=== PATIENT | female | born 1950 | race African-American/Black ===

== ENCOUNTER 2022-05-25 10:09 | Inpatient (IN) | payer OTHER ==
[2022-05-25] MEDS ORDERED: SODIUM CHLORIDE 0.9% 1000 ML INFUS.BAG IV ONE (10:52)
[2022-05-25] MEDS ORDERED: MECLIZINE HCL 25 MG TABLET (FP) PO ONE (10:52)
[2022-05-25] MEDS ORDERED: ACETAMINOPHEN 500 MG TABLET (FP) PO ONE (10:52)
[2022-05-25] MEDS ORDERED: ACETAMINOPHEN 325 MG TABLET (FP) ONE (11:03)
[2022-05-25] MEDS ORDERED: MECLIZINE HCL 25 MG TABLET (FP) ONE (11:03)
[2022-05-25 11:50] LABS: BASO % 1.1 % (0-2.0); EOS % 0.5 % (0-4.5); HEMOGLOBIN 10.9 GM/dL (10.7-15.3); MCH 25.5 pg (25.7-33.7); MCHC 32.2 g/dl (32.0-36.0); MEAN CELL VOLUME 79.3 fl (80-96); MEAN PLT VOLUME 10.6 fl (7.5-11.1); MONO % 7.5 % (3.8-10.2); NEUT % 64.9 % (42.8-82.8); PLATELET COUNT 199 10^3/uL (134-434); RBC 4.29 M/mm3 (3.60-5.2); RDW 14.3 % (11.6-15.6)
[2022-05-25 11:56] LABS: CALCIUM 7.3 mg/dL (8.5-10.1)
[2022-05-25 11:57] LABS: ALBUMIN 3.3 g/dl (3.4-5.0); BLOOD UREA NITROGEN 19.5 mg/dL (7-18)
[2022-05-25 12:00] LABS: CREATININE 1.2 mg/dL (0.55-1.3)
[2022-05-25 12:01] LABS: BILIRUBIN,TOTAL 0.3 mg/dL (0.2-1)
[2022-05-25 12:02] LABS: TOT PROT 6.9 g/dl (6.4-8.2)
[2022-05-25] MEDS ORDERED: MECLIZINE HCL 25 MG TABLET (FP) PO PRN (16:17)
[2022-05-25] MEDS ORDERED: HEPARIN NA (PORCINE) 5,000 UNITS/ML 1ML VIAL SQ SCH (22:00)
[2022-05-26] MEDS: ATORVASTATIN CA 40 MG TABLET (FP) PO SCH ×2 (00:40→21:32)
[2022-05-26] MEDS: CARVEDILOL 25 MG TABLET (FP) PO SCH ×3 (00:40→21:33)
[2022-05-26 04:18] VITALS: BMI 36.6
[2022-05-26] MEDS: LEVOTHYROXINE NA 125 MCG TABLET (FP) PO SCH (06:13)
[2022-05-26 07:31] LABS: BASO % 0.6 % (0-2.0); EOS % 0.8 % (0-4.5); HEMOGLOBIN 11.1 GM/dL (10.7-15.3); LYMPH % 31.8 % (8-40); MCH 25.4 pg (25.7-33.7); MCHC 31.8 g/dl (32.0-36.0); MEAN CELL VOLUME 79.7 fl (80-96); MEAN PLT VOLUME 10.5 fl (7.5-11.1); MONO % 7.5 % (3.8-10.2); NEUT % 59.3 % (42.8-82.8); PLATELET COUNT 214 10^3/uL (134-434); RBC 4.39 M/mm3 (3.60-5.2); RDW 14.4 % (11.6-15.6); WHITE BLOOD COUNT 8.3 K/mm3 (4.0-10.0)
[2022-05-26 07:56] LABS: CALCIUM 7.2 mg/dL (8.5-10.1)
[2022-05-26 07:57] LABS: BLOOD UREA NITROGEN 18.4 mg/dL (7-18)
[2022-05-26 08:00] LABS: CREATININE 1.1 mg/dL (0.55-1.3)
[2022-05-26] MEDS ORDERED: ASPIRIN 81 MG CHEWABLE TABLETS PO SCH (10:00)
[2022-05-26] MEDS: LISINOPRIL 20 MG TABLET PO SCH (10:08)
[2022-05-26] MEDS: EZETIMIBE 10 MG TABLET (FP) PO SCH (10:08)
[2022-05-26] MEDS ORDERED: LACTATED RINGERS SOLUTION 1,000 ML/1,000 ML INFUS.BAG IV SCH (10:30)
[2022-05-26] MEDS: LACTATED RINGERS SOLUTION 1,000 ML/1,000 ML INFUS.BAG IV SCH (10:58)
[2022-05-27] MEDS: LEVOTHYROXINE NA 125 MCG TABLET (FP) PO SCH (06:32)
[2022-05-27] MEDS: INSULIN SLIDING SCALE (NOVOLOG) 1 VIAL SQ SCH ×3 (06:32→16:28)
[2022-05-27] MEDS: LISINOPRIL 20 MG TABLET PO SCH (10:53)
[2022-05-27] MEDS: CARVEDILOL 25 MG TABLET (FP) PO SCH (10:53)
[2022-05-27] MEDS: ENOXAPARIN NA (PORCINE) 40 MG/0.4 ML DISP.SYRIN SQ SCH (10:54)
[2022-05-27] MEDS: EZETIMIBE 10 MG TABLET (FP) PO SCH (10:54)
[2022-05-27] MEDS: LACTATED RINGERS SOLUTION 1,000 ML/1,000 ML INFUS.BAG IV SCH (10:54)
[2022-05-27] MEDS ORDERED: ASPIRIN 325 MG ENTERIC COATED TABLET (FP) PO ONE (11:02)
[2022-05-27] MEDS ORDERED: CLOPIDOGREL BISULFATE 75 MG TABLET (FP) PO SCH (11:30)
[2022-05-27] MEDS: CLOPIDOGREL BISULFATE 75 MG TABLET (FP) PO SCH (16:26)
[2022-05-27] MEDS ORDERED: SODIUM CHLORIDE 1,000 ML IV SCH (19:15)
[2022-05-27] MEDS: ATORVASTATIN CA 40 MG TABLET (FP) PO SCH (21:08)
[2022-05-28] MEDS: LEVOTHYROXINE NA 125 MCG TABLET (FP) PO SCH (06:24)
[2022-05-28] MEDS: INSULIN SLIDING SCALE (NOVOLOG) 1 VIAL SQ SCH ×3 (06:24→17:02)
[2022-05-28 07:17] LABS: HEMOGLOBIN 10.5 GM/dL (10.7-15.3); MCH 25.6 pg (25.7-33.7); MCHC 31.9 g/dl (32.0-36.0); MEAN CELL VOLUME 80.2 fl (80-96); MEAN PLT VOLUME 10.8 fl (7.5-11.1); PLATELET COUNT 207 10^3/uL (134-434); RBC 4.12 M/mm3 (3.60-5.2); RDW 14.5 % (11.6-15.6); WHITE BLOOD COUNT 6.7 K/mm3 (4.0-10.0)
[2022-05-28 07:35] LABS: CHLORIDE 104 mmol/L (98-107); SODIUM 139 mmol/L (136-145)
[2022-05-28 07:39] LABS: CO2 35 mmol/L (21-32)
[2022-05-28 07:42] LABS: CALCIUM 7.3 mg/dL (8.5-10.1); MAGNESIUM 1.7 mg/dL (1.8-2.4)
[2022-05-28 07:43] LABS: CREATININE 1.2 mg/dL (0.55-1.3); SGOT/AST 69 U/L (15-37); SGPT/ALT 39 U/L (13-61)
[2022-05-28 07:44] LABS: TOT PROT 6.7 g/dl (6.4-8.2)
[2022-05-28 07:47] LABS: BLOOD UREA NITROGEN 16.8 mg/dL (7-18); GLUCOSE,RANDOM 183 mg/dL (74-106)
[2022-05-28 07:48] LABS: ALBUMIN 2.8 g/dl (3.4-5.0)
[2022-05-28 07:49] LABS: BILIRUBIN,TOTAL 0.5 mg/dL (0.2-1)
[2022-05-28 07:50] LABS: ALK PHOS 66 U/L (45-117); HDL CHOLESTEROL 47 mg/dL (40-60); PHOSPHOROUS 4.2 mg/dL (2.5-4.9)
[2022-05-28 07:51] LABS: CHOLESTEROL 118 mg/dL (50-200); LDL CHOLESTEROL (ONLY SJRH) 67 mg/dL (5-100)
[2022-05-28 08:16] LABS: ANION GAP 0 MMOL/L (8-16)
[2022-05-28] MEDS ORDERED: MAGNESIUM 2GM/50ML STERILE WATER IVPB IVPB ONE (08:26)
[2022-05-28] MEDS: ENOXAPARIN NA (PORCINE) 40 MG/0.4 ML DISP.SYRIN SQ SCH (09:19)
[2022-05-28] MEDS: LISINOPRIL 20 MG TABLET PO SCH (09:19)
[2022-05-28] MEDS: EZETIMIBE 10 MG TABLET (FP) PO SCH (09:19)
[2022-05-28] MEDS: CLOPIDOGREL BISULFATE 75 MG TABLET (FP) PO SCH (09:19)
[2022-05-28] MEDS ORDERED: ASPIRIN COATED 81 MG TABLET.EC PO SCH (10:00)
[2022-05-28] MEDS: LACTATED RINGERS SOLUTION 1,000 ML/1,000 ML INFUS.BAG IV SCH ×2 (11:00→12:51)
[2022-05-28 11:57] LABS: CALCIUM 7.8 mg/dL (8.5-10.1)
[2022-05-28 11:58] LABS: BLOOD UREA NITROGEN 16.8 mg/dL (7-18)
[2022-05-28 12:01] LABS: CREATININE 1.2 mg/dL (0.55-1.3)
[2022-05-28] MEDS: CARVEDILOL 25 MG TABLET (FP) PO SCH (22:00)
[2022-05-28] MEDS: ATORVASTATIN CA 40 MG TABLET (FP) PO SCH (22:00)
[2022-05-29] MEDS: INSULIN SLIDING SCALE (NOVOLOG) 1 VIAL SQ SCH ×3 (06:07→16:12)
[2022-05-29] MEDS: LEVOTHYROXINE NA 125 MCG TABLET (FP) PO SCH (06:08)
[2022-05-29] MEDS: LACTATED RINGERS SOLUTION 1,000 ML/1,000 ML INFUS.BAG IV SCH (06:10)
[2022-05-29 08:10] LABS: CALCIUM 7.3 mg/dL (8.5-10.1)
[2022-05-29 08:11] LABS: ALBUMIN 2.8 g/dl (3.4-5.0); BLOOD UREA NITROGEN 17.5 mg/dL (7-18); MAGNESIUM 1.9 mg/dL (1.8-2.4)
[2022-05-29 08:14] LABS: CREATININE 1.1 mg/dL (0.55-1.3); PHOSPHOROUS 3.1 mg/dL (2.5-4.9)
[2022-05-29 08:16] LABS: BILIRUBIN,TOTAL 0.4 mg/dL (0.2-1)
[2022-05-29 08:29] LABS: HEMATOCRIT 29.2 % (32.4-45.2); HEMOGLOBIN 9.3 GM/dL (10.7-15.3); MCH 25.6 pg (25.7-33.7); MCHC 31.9 g/dl (32.0-36.0); MEAN CELL VOLUME 80.3 fl (80-96); MEAN PLT VOLUME 10.4 fl (7.5-11.1); PLATELET COUNT 159 10^3/uL (134-434); RBC 3.63 M/mm3 (3.60-5.2); RDW 14.6 % (11.6-15.6); WHITE BLOOD COUNT 6.2 K/mm3 (4.0-10.0)
[2022-05-29] MEDS: ENOXAPARIN NA (PORCINE) 40 MG/0.4 ML DISP.SYRIN SQ SCH (09:22)
[2022-05-29] MEDS: EZETIMIBE 10 MG TABLET (FP) PO SCH (09:23)
[2022-05-29] MEDS: CLOPIDOGREL BISULFATE 75 MG TABLET (FP) PO SCH (09:23)
[2022-05-29] MEDS: LISINOPRIL 20 MG TABLET PO SCH (09:23)
[2022-05-29] MEDS: CARVEDILOL 25 MG TABLET (FP) PO SCH ×2 (09:23→21:26)
[2022-05-29] MEDS ORDERED: FUROSEMIDE 40 MG/4 ML INJECTABLE VIAL IVPUSH ONE (11:54)
[2022-05-29] MEDS: ATORVASTATIN CA 40 MG TABLET (FP) PO SCH (21:25)
[2022-05-30] MEDS: INSULIN SLIDING SCALE (NOVOLOG) 1 VIAL SQ SCH ×3 (06:03→17:31)
[2022-05-30] MEDS: LEVOTHYROXINE NA 125 MCG TABLET (FP) PO SCH (06:03)
[2022-05-30 06:42] LABS: HEMATOCRIT 29.7 % (32.4-45.2); HEMOGLOBIN 9.5 GM/dL (10.7-15.3); MCH 25.6 pg (25.7-33.7); MEAN CELL VOLUME 79.9 fl (80-96); MEAN PLT VOLUME 10.8 fl (7.5-11.1); PLATELET COUNT 167 10^3/uL (134-434); RBC 3.71 M/mm3 (3.60-5.2); RDW 14.1 % (11.6-15.6); WHITE BLOOD COUNT 6.1 K/mm3 (4.0-10.0)
[2022-05-30 07:10] LABS: CALCIUM 7.6 mg/dL (8.5-10.1)
[2022-05-30 07:11] LABS: ALBUMIN 2.9 g/dl (3.4-5.0); BLOOD UREA NITROGEN 23.4 mg/dL (7-18); MAGNESIUM 1.9 mg/dL (1.8-2.4)
[2022-05-30 07:14] LABS: CREATININE 1.1 mg/dL (0.55-1.3); PHOSPHOROUS 4.2 mg/dL (2.5-4.9)
[2022-05-30 07:15] LABS: BILIRUBIN,TOTAL 0.4 mg/dL (0.2-1); TOT PROT 6.2 g/dl (6.4-8.2)
[2022-05-30] MEDS: CLOPIDOGREL BISULFATE 75 MG TABLET (FP) PO SCH (09:34)
[2022-05-30] MEDS: EZETIMIBE 10 MG TABLET (FP) PO SCH (09:34)
[2022-05-30] MEDS: LISINOPRIL 20 MG TABLET PO SCH (09:34)
[2022-05-30] MEDS: CARVEDILOL 25 MG TABLET (FP) PO SCH ×2 (09:35→22:13)
[2022-05-30] MEDS: ENOXAPARIN NA (PORCINE) 40 MG/0.4 ML DISP.SYRIN SQ SCH (09:35)
[2022-05-30] MEDS: APIXABAN 5 MG TABLET PO SCH ×2 (12:39→22:13)
[2022-05-30] MEDS: ATORVASTATIN CA 40 MG TABLET (FP) PO SCH (22:13)
[2022-05-31] MEDS: LEVOTHYROXINE NA 125 MCG TABLET (FP) PO SCH (06:42)
[2022-05-31] MEDS: INSULIN SLIDING SCALE (NOVOLOG) 1 VIAL SQ SCH ×3 (06:42→17:55)
[2022-05-31 07:36] LABS: HEMATOCRIT 29.6 % (32.4-45.2); HEMOGLOBIN 9.4 GM/dL (10.7-15.3); MCH 25.7 pg (25.7-33.7); MCHC 31.9 g/dl (32.0-36.0); MEAN CELL VOLUME 80.5 fl (80-96); PLATELET COUNT 162 10^3/uL (134-434); RBC 3.68 M/mm3 (3.60-5.2); WHITE BLOOD COUNT 5.4 K/mm3 (4.0-10.0)
[2022-05-31 08:07] LABS: CALCIUM 7.3 mg/dL (8.5-10.1)
[2022-05-31 08:08] LABS: BLOOD UREA NITROGEN 22.9 mg/dL (7-18); MAGNESIUM 1.8 mg/dL (1.8-2.4)
[2022-05-31] MEDS: APIXABAN 5 MG TABLET PO SCH ×2 (10:24→21:33)
[2022-05-31] MEDS: LISINOPRIL 20 MG TABLET PO SCH (10:24)
[2022-05-31] MEDS: CARVEDILOL 25 MG TABLET (FP) PO SCH ×2 (10:24→21:33)
[2022-05-31] MEDS: CLOPIDOGREL BISULFATE 75 MG TABLET (FP) PO SCH (10:24)
[2022-05-31] MEDS: EZETIMIBE 10 MG TABLET (FP) PO SCH (10:24)
[2022-05-31] MEDS: ATORVASTATIN CA 40 MG TABLET (FP) PO SCH (21:33)
[2022-06-01] MEDS: INSULIN SLIDING SCALE (NOVOLOG) 1 VIAL SQ SCH ×3 (06:40→17:44)
[2022-06-01] MEDS: LEVOTHYROXINE NA 125 MCG TABLET (FP) PO SCH (06:40)
[2022-06-01 08:11] LABS: HEMATOCRIT 27.7 % (32.4-45.2); HEMOGLOBIN 8.9 GM/dL (10.7-15.3); MCH 25.7 pg (25.7-33.7); MEAN CELL VOLUME 80.5 fl (80-96); MEAN PLT VOLUME 10.1 fl (7.5-11.1); PLATELET COUNT 148 10^3/uL (134-434); RBC 3.44 M/mm3 (3.60-5.2); RDW 14.1 % (11.6-15.6); WHITE BLOOD COUNT 5.4 K/mm3 (4.0-10.0)
[2022-06-01 09:01] LABS: BLOOD UREA NITROGEN 21.3 mg/dL (7-18); CALCIUM 7.8 mg/dL (8.5-10.1)
[2022-06-01 09:02] LABS: ALBUMIN 2.7 g/dl (3.4-5.0); MAGNESIUM 1.9 mg/dL (1.8-2.4)
[2022-06-01 09:04] LABS: PHOSPHOROUS 3.6 mg/dL (2.5-4.9)
[2022-06-01 09:05] LABS: CREATININE 1.1 mg/dL (0.55-1.3)
[2022-06-01 09:06] LABS: BILIRUBIN,TOTAL 0.4 mg/dL (0.2-1); TOT PROT 5.8 g/dl (6.4-8.2)
[2022-06-01] MEDS: CLOPIDOGREL BISULFATE 75 MG TABLET (FP) PO SCH (09:59)
[2022-06-01] MEDS: CARVEDILOL 25 MG TABLET (FP) PO SCH ×2 (09:59→21:01)
[2022-06-01] MEDS: APIXABAN 5 MG TABLET PO SCH (09:59)
[2022-06-01] MEDS: LISINOPRIL 20 MG TABLET PO SCH (09:59)
[2022-06-01] MEDS: EZETIMIBE 10 MG TABLET (FP) PO SCH (09:59)
[2022-06-01] MEDS ORDERED: INSULIN (NOVOLOG) ASPART 100 UNITS/ML 10ML VIAL ONE ×2 (12:28→17:41)
[2022-06-01] MEDS: ATORVASTATIN CA 40 MG TABLET (FP) PO SCH (21:01)
[2022-06-02] MEDS ORDERED: INSULIN (NOVOLOG) ASPART 100 UNITS/ML 10ML VIAL ONE ×3 (06:13→17:33)
[2022-06-02] MEDS: INSULIN SLIDING SCALE (NOVOLOG) 1 VIAL SQ SCH ×3 (06:13→17:35)
[2022-06-02] MEDS: LEVOTHYROXINE NA 125 MCG TABLET (FP) PO SCH (06:23)
[2022-06-02 08:00] LABS: HEMATOCRIT 29.8 % (32.4-45.2); HEMOGLOBIN 9.5 GM/dL (10.7-15.3); MCH 25.9 pg (25.7-33.7); MCHC 31.7 g/dl (32.0-36.0); MEAN CELL VOLUME 81.6 fl (80-96); MEAN PLT VOLUME 10.9 fl (7.5-11.1); PLATELET COUNT 170 10^3/uL (134-434); RBC 3.65 M/mm3 (3.60-5.2); RDW 14.1 % (11.6-15.6); WHITE BLOOD COUNT 6.1 K/mm3 (4.0-10.0)
[2022-06-02 08:48] LABS: ALBUMIN 2.9 g/dl (3.4-5.0); BLOOD UREA NITROGEN 23.2 mg/dL (7-18); CALCIUM 8.2 mg/dL (8.5-10.1)
[2022-06-02 08:51] LABS: PHOSPHOROUS 3.7 mg/dL (2.5-4.9)
[2022-06-02 09:00] LABS: BILIRUBIN,TOTAL 0.4 mg/dL (0.2-1)
[2022-06-02] MEDS: LISINOPRIL 20 MG TABLET PO SCH (10:27)
[2022-06-02] MEDS: CARVEDILOL 25 MG TABLET (FP) PO SCH ×2 (10:27→22:03)
[2022-06-02] MEDS: CLOPIDOGREL BISULFATE 75 MG TABLET (FP) PO SCH (10:28)
[2022-06-02] MEDS: EZETIMIBE 10 MG TABLET (FP) PO SCH (10:28)
[2022-06-02] MEDS ORDERED: FUROSEMIDE 40 MG/4 ML INJECTABLE VIAL IVPUSH ONE (10:57)
[2022-06-02] MEDS: ATORVASTATIN CA 40 MG TABLET (FP) PO SCH (22:03)
[2022-06-03] MEDS ORDERED: INSULIN (NOVOLOG) ASPART 100 UNITS/ML 10ML VIAL ONE (06:54)
[2022-06-03] MEDS: INSULIN SLIDING SCALE (NOVOLOG) 1 VIAL SQ SCH ×3 (06:58→17:25)
[2022-06-03] MEDS: LEVOTHYROXINE NA 125 MCG TABLET (FP) PO SCH (07:01)
[2022-06-03 07:51] LABS: HEMATOCRIT 27.6 % (32.4-45.2); HEMOGLOBIN 8.9 GM/dL (10.7-15.3); MCH 25.7 pg (25.7-33.7); MCHC 32.2 g/dl (32.0-36.0); MEAN CELL VOLUME 79.9 fl (80-96); MEAN PLT VOLUME 10.8 fl (7.5-11.1); PLATELET COUNT 172 10^3/uL (134-434); RBC 3.46 M/mm3 (3.60-5.2); WHITE BLOOD COUNT 6.6 K/mm3 (4.0-10.0)
[2022-06-03 08:13] LABS: CALCIUM 8.1 mg/dL (8.5-10.1)
[2022-06-03 08:14] LABS: ALBUMIN 2.9 g/dl (3.4-5.0)
[2022-06-03 08:19] LABS: BILIRUBIN,TOTAL 0.5 mg/dL (0.2-1)
[2022-06-03] MEDS ORDERED: PIPERACILLIN/TAZOB 3.375 GM 3.375 GM in DEXTROSE 5%-WATER - 50 ML IVPB SCH ×2 (09:15→09:45)
[2022-06-03] MEDS: ENOXAPARIN NA (PORCINE) 40 MG/0.4 ML DISP.SYRIN SQ SCH (10:35)
[2022-06-03] MEDS: LISINOPRIL 20 MG TABLET PO SCH (10:36)
[2022-06-03] MEDS: CARVEDILOL 25 MG TABLET (FP) PO SCH ×2 (10:36→21:23)
[2022-06-03] MEDS: EZETIMIBE 10 MG TABLET (FP) PO SCH (10:36)
[2022-06-03] MEDS: CLOPIDOGREL BISULFATE 75 MG TABLET (FP) PO SCH (10:36)
[2022-06-03 11:01] LABS: ARTERIAL BLD GAS O2 SATURATION 96.4 % (95-98); ARTERIAL BLOOD GAS BASE EXCESS 12.9 mmol/L (-2-2); ARTERIAL BLOOD GAS PO2 93.7 mmHg (80-100); ARTERIAL BLOOD GAS pH 7.345 (7.350-7.450)
[2022-06-03 11:15] LABS: ALLENS TEST POSITIVE
[2022-06-03] MEDS: ATORVASTATIN CA 40 MG TABLET (FP) PO SCH (21:23)
[2022-06-04] MEDS: INSULIN SLIDING SCALE (NOVOLOG) 1 VIAL SQ SCH ×3 (06:21→17:16)
[2022-06-04] MEDS ORDERED: INSULIN (NOVOLOG) ASPART 100 UNITS/ML 10ML VIAL ONE ×2 (06:21→11:27)
[2022-06-04] MEDS: LEVOTHYROXINE NA 125 MCG TABLET (FP) PO SCH (06:23)
[2022-06-04 07:42] LABS: HEMATOCRIT 27.7 % (32.4-45.2); HEMOGLOBIN 8.9 GM/dL (10.7-15.3); MCH 25.9 pg (25.7-33.7); MCHC 32.2 g/dl (32.0-36.0); MEAN CELL VOLUME 80.4 fl (80-96); MEAN PLT VOLUME 10.8 fl (7.5-11.1); PLATELET COUNT 169 10^3/uL (134-434); RBC 3.45 M/mm3 (3.60-5.2); RDW 13.6 % (11.6-15.6); WHITE BLOOD COUNT 6.9 K/mm3 (4.0-10.0)
[2022-06-04 08:03] LABS: CALCIUM 8.1 mg/dL (8.5-10.1)
[2022-06-04 08:04] LABS: ALBUMIN 2.8 g/dl (3.4-5.0); BLOOD UREA NITROGEN 20.8 mg/dL (7-18)
[2022-06-04 08:07] LABS: CREATININE 0.9 mg/dL (0.55-1.3); PHOSPHOROUS 3.9 mg/dL (2.5-4.9)
[2022-06-04 08:08] LABS: BILIRUBIN,TOTAL 0.4 mg/dL (0.2-1); TOT PROT 5.9 g/dl (6.4-8.2)
[2022-06-04] MEDS: CARVEDILOL 25 MG TABLET (FP) PO SCH ×3 (09:13→21:03)
[2022-06-04] MEDS: CLOPIDOGREL BISULFATE 75 MG TABLET (FP) PO SCH (09:14)
[2022-06-04] MEDS: LISINOPRIL 20 MG TABLET PO SCH (09:14)
[2022-06-04] MEDS: ENOXAPARIN NA (PORCINE) 40 MG/0.4 ML DISP.SYRIN SQ SCH (09:14)
[2022-06-04] MEDS: EZETIMIBE 10 MG TABLET (FP) PO SCH (09:15)
[2022-06-04] MEDS: ATORVASTATIN CA 40 MG TABLET (FP) PO SCH (21:03)
[2022-06-05] MEDS: INSULIN SLIDING SCALE (NOVOLOG) 1 VIAL SQ SCH ×3 (06:26→16:53)
[2022-06-05] MEDS: LEVOTHYROXINE NA 125 MCG TABLET (FP) PO SCH (06:27)
[2022-06-05 08:21] LABS: HEMATOCRIT 28.3 % (32.4-45.2); HEMOGLOBIN 9.2 GM/dL (10.7-15.3); MCHC 32.4 g/dl (32.0-36.0); MEAN CELL VOLUME 80.2 fl (80-96); MEAN PLT VOLUME 10.8 fl (7.5-11.1); PLATELET COUNT 180 10^3/uL (134-434); RBC 3.53 M/mm3 (3.60-5.2); WHITE BLOOD COUNT 6.3 K/mm3 (4.0-10.0)
[2022-06-05 08:37] LABS: ALBUMIN 2.9 g/dl (3.4-5.0); BLOOD UREA NITROGEN 18.8 mg/dL (7-18); CALCIUM 8.1 mg/dL (8.5-10.1)
[2022-06-05 08:40] LABS: PHOSPHOROUS 3.5 mg/dL (2.5-4.9)
[2022-06-05 08:41] LABS: CREATININE 0.9 mg/dL (0.55-1.3)
[2022-06-05 08:42] LABS: BILIRUBIN,TOTAL 0.4 mg/dL (0.2-1); TOT PROT 6.1 g/dl (6.4-8.2)
[2022-06-05] MEDS: ENOXAPARIN NA (PORCINE) 40 MG/0.4 ML DISP.SYRIN SQ SCH (10:33)
[2022-06-05] MEDS: CLOPIDOGREL BISULFATE 75 MG TABLET (FP) PO SCH (10:34)
[2022-06-05] MEDS: EZETIMIBE 10 MG TABLET (FP) PO SCH (10:34)
[2022-06-05] MEDS: LISINOPRIL 20 MG TABLET PO SCH (10:34)
[2022-06-05] MEDS: CARVEDILOL 25 MG TABLET (FP) PO SCH ×2 (10:35→21:02)
[2022-06-05] MEDS ORDERED: INSULIN (NOVOLOG) ASPART 100 UNITS/ML 10ML VIAL ONE ×2 (12:03→12:34)
[2022-06-05 15:57] LABS: ARTERIAL BLD GAS O2 SATURATION 79.7 % (95-98); ARTERIAL BLOOD GAS BASE EXCESS 16.4 mmol/L (-2-2); ARTERIAL BLOOD GAS PO2 48.1 mmHg (80-100); ARTERIAL BLOOD GAS pH 7.359 (7.350-7.450)
[2022-06-05 16:01] LABS: ALLENS TEST POSITIVE
[2022-06-05] MEDS: ATORVASTATIN CA 40 MG TABLET (FP) PO SCH (21:03)
[2022-06-06] MEDS: LEVOTHYROXINE NA 125 MCG TABLET (FP) PO SCH (06:02)
[2022-06-06] MEDS: INSULIN SLIDING SCALE (NOVOLOG) 1 VIAL SQ SCH ×3 (06:16→17:28)
[2022-06-06 07:16] LABS: HEMOGLOBIN 8.9 GM/dL (10.7-15.3); MCH 25.7 pg (25.7-33.7); MCHC 31.7 g/dl (32.0-36.0); MEAN CELL VOLUME 80.9 fl (80-96); MEAN PLT VOLUME 10.2 fl (7.5-11.1); PLATELET COUNT 177 10^3/uL (134-434); RBC 3.46 M/mm3 (3.60-5.2); RDW 14.1 % (11.6-15.6)
[2022-06-06 08:00] LABS: BLOOD UREA NITROGEN 20.9 mg/dL (7-18)
[2022-06-06 08:01] LABS: ALBUMIN 2.8 g/dl (3.4-5.0); CALCIUM 7.8 mg/dL (8.5-10.1); MAGNESIUM 1.9 mg/dL (1.8-2.4)
[2022-06-06 08:04] LABS: PHOSPHOROUS 4.2 mg/dL (2.5-4.9)
[2022-06-06 08:06] LABS: BILIRUBIN,TOTAL 0.3 mg/dL (0.2-1); TOT PROT 5.9 g/dl (6.4-8.2)
[2022-06-06] MEDS: LISINOPRIL 20 MG TABLET PO SCH (10:54)
[2022-06-06] MEDS: EZETIMIBE 10 MG TABLET (FP) PO SCH (10:54)
[2022-06-06] MEDS: CLOPIDOGREL BISULFATE 75 MG TABLET (FP) PO SCH (10:54)
[2022-06-06] MEDS: ENOXAPARIN NA (PORCINE) 40 MG/0.4 ML DISP.SYRIN SQ SCH (10:54)
[2022-06-06] MEDS: CARVEDILOL 25 MG TABLET (FP) PO SCH (10:54)
[2022-06-06] MEDS ORDERED: INSULIN (NOVOLOG) ASPART 100 UNITS/ML 10ML VIAL ONE ×2 (11:57→20:30)
[2022-06-06] MEDS: ATORVASTATIN CA 40 MG TABLET (FP) PO SCH (21:47)
[2022-06-06] MEDS: CARVEDILOL 12.5 MG TABLET (FP) PO SCH (21:47)
[2022-06-07] MEDS: INSULIN SLIDING SCALE (NOVOLOG) 1 VIAL SQ SCH ×3 (06:46→17:18)
[2022-06-07] MEDS: LEVOTHYROXINE NA 125 MCG TABLET (FP) PO SCH (06:46)
[2022-06-07 08:29] LABS: BLOOD UREA NITROGEN 23.8 mg/dL (7-18)
[2022-06-07 08:30] LABS: ALBUMIN 2.7 g/dl (3.4-5.0)
[2022-06-07 08:31] LABS: BILIRUBIN,TOTAL 0.4 mg/dL (0.2-1); CALCIUM 7.6 mg/dL (8.5-10.1); MAGNESIUM 1.9 mg/dL (1.8-2.4)
[2022-06-07 08:32] LABS: PHOSPHOROUS 4.4 mg/dL (2.5-4.9)
[2022-06-07 08:59] LABS: HEMATOCRIT 27.2 % (32.4-45.2); HEMOGLOBIN 8.6 GM/dL (10.7-15.3); MCH 25.8 pg (25.7-33.7); MCHC 31.8 g/dl (32.0-36.0); MEAN CELL VOLUME 81.1 fl (80-96); MEAN PLT VOLUME 10.2 fl (7.5-11.1); PLATELET COUNT 172 10^3/uL (134-434); RBC 3.35 M/mm3 (3.60-5.2); RDW 14.3 % (11.6-15.6); WHITE BLOOD COUNT 6.9 K/mm3 (4.0-10.0)
[2022-06-07] MEDS: LISINOPRIL 20 MG TABLET PO SCH (10:06)
[2022-06-07] MEDS: CARVEDILOL 12.5 MG TABLET (FP) PO SCH ×2 (10:06→21:37)
[2022-06-07] MEDS: EZETIMIBE 10 MG TABLET (FP) PO SCH (10:06)
[2022-06-07] MEDS: ENOXAPARIN NA (PORCINE) 40 MG/0.4 ML DISP.SYRIN SQ SCH (10:06)
[2022-06-07] MEDS: CLOPIDOGREL BISULFATE 75 MG TABLET (FP) PO SCH (10:06)
[2022-06-07] MEDS: ATORVASTATIN CA 40 MG TABLET (FP) PO SCH (21:36)
[2022-06-07] MEDS ORDERED: MECLIZINE HCL 25 MG TABLET (FP) PO PRN (22:40)
[2022-06-07 22:49] VITALS: RESP 18
[2022-06-08] MEDS: INSULIN SLIDING SCALE (NOVOLOG) 1 VIAL SQ SCH ×3 (06:24→17:20)
[2022-06-08] MEDS ORDERED: LEVOTHYROXINE NA 125 MCG TABLET (FP) PO SCH (07:00)
[2022-06-08 09:12] LABS: HEMATOCRIT 27.2 % (32.4-45.2); HEMOGLOBIN 8.6 GM/dL (10.7-15.3); MCH 25.6 pg (25.7-33.7); MCHC 31.7 g/dl (32.0-36.0); MEAN CELL VOLUME 80.7 fl (80-96); MEAN PLT VOLUME 9.9 fl (7.5-11.1); PLATELET COUNT 183 10^3/uL (134-434); RBC 3.37 M/mm3 (3.60-5.2); RDW 14.3 % (11.6-15.6); WHITE BLOOD COUNT 6.2 K/mm3 (4.0-10.0)
[2022-06-08 09:53] LABS: BLOOD UREA NITROGEN 19.6 mg/dL (7-18); CALCIUM 7.5 mg/dL (8.5-10.1); MAGNESIUM 1.9 mg/dL (1.8-2.4)
[2022-06-08 09:55] LABS: ALBUMIN 2.7 g/dl (3.4-5.0)
[2022-06-08 09:57] LABS: BILIRUBIN,TOTAL 0.4 mg/dL (0.2-1)
[2022-06-08 09:58] LABS: TOT PROT 5.9 g/dl (6.4-8.2)
[2022-06-08 09:59] LABS: CREATININE 0.9 mg/dL (0.55-1.3); PHOSPHOROUS 4.1 mg/dL (2.5-4.9)
[2022-06-08] MEDS ORDERED: LISINOPRIL 20 MG TABLET PO SCH (10:00)
[2022-06-08] MEDS ORDERED: EZETIMIBE 10 MG TABLET (FP) PO SCH (10:00)
[2022-06-08] MEDS ORDERED: ENOXAPARIN NA (PORCINE) 40 MG/0.4 ML DISP.SYRIN SQ SCH (10:00)
[2022-06-08] MEDS ORDERED: CARVEDILOL 12.5 MG TABLET (FP) PO SCH (10:00)
[2022-06-08] MEDS ORDERED: CLOPIDOGREL BISULFATE 75 MG TABLET (FP) PO SCH (10:00)
[2022-06-08] MEDS ORDERED: INSULIN (NOVOLOG) ASPART 100 UNITS/ML 10ML VIAL ONE (11:51)
[2022-06-08 17:52] VITALS: BP 133/58; PULSE 66; TEMP 98.4
[2022-06-08] MEDS ORDERED: ATORVASTATIN CA 40 MG TABLET (FP) PO SCH (22:00)
== END 2022-06-08 18:32 | disposition home or self-care (01) | DRG 64 ==
LOC: JER 10:09 → INTOOBSV 15:21 → JERBED 15:21 → UNDOADMOB 15:21 → JERBED 16:01 → J4W 05-26 02:43 → OBSVTOIN 05-27 13:43 → J6S 06-07 21:56
PROVIDERS: ADMIT Internal Medicine; ATTEND Internal Medicine
DX: I61.9 Nontraumatic intracerebral hemorrhage, unspecified (principal); I63.89 Other cerebral infarction; J96.22 Acute and chronic respiratory failure with hypercapnia; J96.21 Acute and chronic respiratory failure with hypoxia; J98.11 Atelectasis; I25.10 Atherosclerotic heart disease of native coronary artery without angina pectoris; I10 Essential (primary) hypertension; E78.5 Hyperlipidemia, unspecified; E11.9 Type 2 diabetes mellitus without complications; E03.9 Hypothyroidism, unspecified; R51.9 Headache, unspecified; R93.0 Abnormal findings on diagnostic imaging of skull and head, not elsewhere classified; R29.700 NIHSS score 0; I95.1 Orthostatic hypotension; E86.0 Dehydration; G47.33 Obstructive sleep apnea (adult) (pediatric); I48.91 Unspecified atrial fibrillation; D64.9 Anemia, unspecified; J44.9 Chronic obstructive pulmonary disease, unspecified
CPT/HCPCS: 0241U-QW; 36415; 36600; 70450-TC; 70551-TC; 71045-TC-FY; 71046-TC-FY; 71250-TC; 74230-TC-FY; 80048; 80053; 80061; 82308; 82803; 82962; 83036; 83735; 84100; 84484; 85025; 85027; 85730; 87040; 92611-GN; 93005; 93010; 93306-TC; 93880-TC; 93970-TC; 94660; 94761; 97116-GP; 97162-GP; 99285-25; C9803-CS; G0378; U0003; U0005

== ENCOUNTER 2023-01-08 11:00 | Inpatient (IN) | payer OTHER ==
[2023-01-08 12:52] LABS: BASO % 0.8 % (0-2.0); EOS % 0.9 % (0-4.5); HEMATOCRIT 37.3 % (32.4-45.2); HEMOGLOBIN 11.7 GM/dL (10.7-15.3); LYMPH % 30.3 % (8-40); MCHC 31.5 g/dl (32.0-36.0); MEAN CELL VOLUME 76.1 fl (80-96); MEAN PLT VOLUME 10.2 fl (7.5-11.1); MONO % 7.5 % (3.8-10.2); NEUT % 60.5 % (42.8-82.8); PLATELET COUNT 264 10^3/uL (134-434); RDW 16.2 % (11.6-15.6)
[2023-01-08 13:06] LABS: CHLORIDE 100 mmol/L (98-107); SODIUM 138 mmol/L (136-145)
[2023-01-08 13:09] LABS: CALCIUM 8.7 mg/dL (8.5-10.1)
[2023-01-08 13:10] LABS: ALBUMIN 3.6 g/dl (3.4-5.0); BLOOD UREA NITROGEN 25.7 mg/dL (7-18); CO2 32 mmol/L (21-32); GLUCOSE,RANDOM 156 mg/dL (74-106)
[2023-01-08 13:13] LABS: CREATININE 1.2 mg/dL (0.55-1.3); SGOT/AST 19 U/L (15-37); SGPT/ALT 19 U/L (13-61)
[2023-01-08 13:14] LABS: BILIRUBIN,TOTAL 0.5 mg/dL (0.2-1); TOT PROT 7.2 g/dl (6.4-8.2)
[2023-01-08 13:16] LABS: ALK PHOS 59 U/L (45-117)
[2023-01-08 13:18] LABS: ANION GAP 6 mmol/L (4-13); N-TERMINAL BNP 665.6 pg/ml (5-125); POTASSIUM 6.1 mmol/L (3.5-5.1)
[2023-01-08 13:23] LABS: PH,URINE 7.5 (5.0-8.0); URINE APPEARANCE CLEAR; URINE BILIRUBIN NEGATIVE (NEGATIVE); URINE COLOR YELLOW; URINE GLUCOSE (UA) 3+ (NEGATIVE); URINE KETONE NEGATIVE (NEGATIVE); URINE LEUK ESTERASE NEGATIVE (NEGATIVE); URINE NITRITE NEGATIVE (NEGATIVE); URINE PROTEIN NEGATIVE (NEGATIVE)
[2023-01-08] MEDS ORDERED: INSULIN REGULAR HUMAN 100 UNITS/ML *VIAL IVPUSH ONE (13:36)
[2023-01-08] MEDS ORDERED: DEXTROSE 50%-WATER - 25 GM/50 ML VIAL IVPUSH ONE (13:37)
[2023-01-08] MEDS ORDERED: SODIUM CHLORIDE 0.9% 500 ML INFUS.BAG IV ONE (13:37)
[2023-01-08] MEDS ORDERED: SODIUM ZIRCONIUM CYCLOSILICATE (LOKELMA) 10 GM PACKET ONE (13:45)
[2023-01-08] MEDS ORDERED: DEXTROSE 50%-WATER 25 GM/50 ML DISP.SYRIN ONE (13:45)
[2023-01-08] MEDS ORDERED: SODIUM ZIRCONIUM CYCLOSILICATE (LOKELMA) 5 GM PACKET PO ONE (14:13)
[2023-01-08 16:57] LABS: BLOOD UREA NITROGEN 22.4 mg/dL (7-18); CALCIUM 8.8 mg/dL (8.5-10.1)
[2023-01-08 17:01] LABS: CREATININE 1.3 mg/dL (0.55-1.3)
[2023-01-08] MEDS ORDERED: ASPIRIN COATED 81 MG TABLET.EC ONE (17:33)
[2023-01-08] MEDS ORDERED: CLOPIDOGREL BISULFATE 75 MG TABLET (FP) ONE (17:33)
[2023-01-08] MEDS: ASPIRIN COATED 81 MG TABLET.EC PO SCH (17:35)
[2023-01-08] MEDS: CLOPIDOGREL BISULFATE 75 MG TABLET (FP) PO SCH (17:35)
[2023-01-08] MEDS: ATORVASTATIN CA 40 MG TABLET (FP) PO SCH (21:36)
[2023-01-08] MEDS ORDERED: CARVEDILOL 25 MG TABLET (FP) PO SCH (22:00)
[2023-01-08 23:18] VITALS: BMI 31.4
[2023-01-09] MEDS: LEVOTHYROXINE NA 125 MCG TABLET (FP) PO SCH (06:48)
[2023-01-09] MEDS: metFORMIN HCL 500 MG TABLET (FP) PO SCH (06:48)
[2023-01-09 07:37] LABS: HEMATOCRIT 35.6 % (32.4-45.2); HEMOGLOBIN 10.9 GM/dL (10.7-15.3); MCH 23.5 pg (25.7-33.7); MCHC 30.5 g/dl (32.0-36.0); MEAN CELL VOLUME 77.3 fl (80-96); MEAN PLT VOLUME 9.8 fl (7.5-11.1); PLATELET COUNT 229 10^3/uL (134-434); RBC 4.61 M/mm3 (3.60-5.2); RDW 15.7 % (11.6-15.6)
[2023-01-09 08:00] LABS: POTASSIUM 4.3 mmol/L (3.5-5.1)
[2023-01-09 08:11] LABS: CALCIUM 8.8 mg/dL (8.5-10.1)
[2023-01-09 08:12] LABS: BLOOD UREA NITROGEN 27.2 mg/dL (7-18)
[2023-01-09 08:15] LABS: CREATININE 1.3 mg/dL (0.55-1.3)
[2023-01-09 08:16] LABS: BILIRUBIN,TOTAL 0.4 mg/dL (0.2-1); TOT PROT 6.2 g/dl (6.4-8.2)
[2023-01-09] MEDS: LISINOPRIL 20 MG TABLET PO SCH (10:15)
[2023-01-09] MEDS: EZETIMIBE 10 MG TABLET (FP) PO SCH (10:15)
[2023-01-09] MEDS: PANTOPRAZOLE 20 MG TABLET PO SCH (10:15)
[2023-01-09] MEDS: CLOPIDOGREL BISULFATE 75 MG TABLET (FP) PO SCH (10:15)
[2023-01-09] MEDS: ASPIRIN COATED 81 MG TABLET.EC PO SCH (10:15)
[2023-01-09] MEDS: EMPAGLIFLOZIN (JARDIANCE) 10 MG TABLET PO SCH (10:15)
[2023-01-09 12:54] VITALS: RESP 18
[2023-01-09] MEDS ORDERED: SODIUM ZIRCONIUM CYCLOSILICATE (LOKELMA) 5 GM PACKET PO ONE (13:38)
[2023-01-09] MEDS: ATORVASTATIN CA 40 MG TABLET (FP) PO SCH (22:00)
[2023-01-10] MEDS: metFORMIN HCL 500 MG TABLET (FP) PO SCH (06:41)
[2023-01-10] MEDS: LEVOTHYROXINE NA 125 MCG TABLET (FP) PO SCH (06:41)
[2023-01-10] MEDS: EMPAGLIFLOZIN (JARDIANCE) 10 MG TABLET PO SCH (09:32)
[2023-01-10] MEDS: CLOPIDOGREL BISULFATE 75 MG TABLET (FP) PO SCH (09:32)
[2023-01-10] MEDS: ASPIRIN COATED 81 MG TABLET.EC PO SCH (09:32)
[2023-01-10] MEDS: HEPARIN NA (PORCINE) 5,000 UNITS/ML 1ML VIAL SQ SCH ×2 (09:33→21:24)
[2023-01-10] MEDS: PANTOPRAZOLE 20 MG TABLET PO SCH (09:33)
[2023-01-10] MEDS: EZETIMIBE 10 MG TABLET (FP) PO SCH (09:33)
[2023-01-10] MEDS: LISINOPRIL 20 MG TABLET PO SCH (09:33)
[2023-01-10] MEDS: ATORVASTATIN CA 40 MG TABLET (FP) PO SCH (21:24)
[2023-01-11] MEDS: LEVOTHYROXINE NA 125 MCG TABLET (FP) PO SCH (06:24)
[2023-01-11] MEDS: metFORMIN HCL 500 MG TABLET (FP) PO SCH (06:24)
[2023-01-11 06:37] VITALS: BP 128/63; PULSE 60; TEMP 98.4
[2023-01-11] MEDS: CLOPIDOGREL BISULFATE 75 MG TABLET (FP) PO SCH (09:26)
[2023-01-11] MEDS: EZETIMIBE 10 MG TABLET (FP) PO SCH (09:26)
[2023-01-11] MEDS: PANTOPRAZOLE 20 MG TABLET PO SCH (09:26)
[2023-01-11] MEDS: EMPAGLIFLOZIN (JARDIANCE) 10 MG TABLET PO SCH (09:27)
[2023-01-11] MEDS: LISINOPRIL 20 MG TABLET PO SCH (09:27)
[2023-01-11] MEDS: ASPIRIN COATED 81 MG TABLET.EC PO SCH (09:27)
[2023-01-11] MEDS: HEPARIN NA (PORCINE) 5,000 UNITS/ML 1ML VIAL SQ SCH (09:27)
== END 2023-01-11 13:58 | disposition home or self-care (01) | DRG 312 ==
LOC: JER 11:00 → JERBED 14:25 → J4W 20:53
PROVIDERS: ADMIT Internal Medicine; ATTEND Internal Medicine
DX: R55 Syncope and collapse (principal); E78.00 Pure hypercholesterolemia, unspecified; I10 Essential (primary) hypertension; I25.10 Atherosclerotic heart disease of native coronary artery without angina pectoris; E11.49 Type 2 diabetes mellitus with other diabetic neurological complication; E87.5 Hyperkalemia; E03.9 Hypothyroidism, unspecified; Z86.73 Personal history of transient ischemic attack (TIA), and cerebral infarction without residual deficits
CPT/HCPCS: 0241U-QW; 36415; 70450-TC; 70551-TC; 71045-TC-FY; 80048; 80053; 80061; 81003; 82962; 83036; 83880; 84439; 84443; 84484; 85025; 85027; 87086; 93005; 93010; 97116-GP; 97162-GP; 99285-25; J1644